=== PATIENT | female | born 1955 | race African-American/Black ===

== ENCOUNTER 2020-01-23 07:25 | Emergency (ER) | payer MEDICARE ==
[~2020-01-23] VITALS: Ht 172.7 cm; Wt 69.0 kg
[2020-01-23 10:01] VITALS: BP 139/77
== END 2020-01-23 10:02 | disposition home or self-care (01) ==
LOC: ER 07:25
DX: F31.9 Bipolar disorder, unspecified (principal); E11.9 Type 2 diabetes mellitus without complications; I10 Essential (primary) hypertension; J45.909 Unspecified asthma, uncomplicated; F20.9 Schizophrenia, unspecified; Z76.0 Encounter for issue of repeat prescription
CPT/HCPCS: 99281; 99283